=== PATIENT | male | born 1955 | race Caucasian/White ===

== ENCOUNTER 2018-03-19 22:15 | Emergency (ER) | payer OTHER ==
[~2018-03-19] VITALS: Ht 182.9 cm; Wt 72.6 kg
[~2018-03-19 22:15] MED LIST: ATRIPLA TABLET1 EACH; ATRIPLA TABLET1 EACH PO; CRESTOR; CRESTOR40 MG PO; GLUCOPHAGE850 MG PO; K-DUR 20 MEQ T20 MEQ PO; LISINOPRIL; METHADONE HCL 110 MG PO; NIACIN; NIACIN 500 MG500 M1 PO; OMEPRAZOLE 20 M20 MG PO; POTASSIUM; PRINIVIL10 MG PO; VITAMIN D-32000 UNI1 PO; XANAX 0.25 MG0.25 MG PO; XANAX 0.5 MG0.5 M1 PO
[2018-03-19] MEDS ORDERED: FLOMAX0.4 MG (22:35)
[2018-03-19] MEDS ORDERED: DESCOVY 200-251 EACH (22:36)
[2018-03-19] MEDS ORDERED: [UNRECOGNIZED DRUG - OTHER] (22:36)
[2018-03-19] MEDS ORDERED: LIPITOR40 MG (22:37)
[2018-03-19] MEDS ORDERED: METFORMIN HCL1000 M1 (22:38)
[2018-03-19] MEDS ORDERED: VITAMIN D5000 UNIT (22:39)
[2018-03-19] MEDS ORDERED: COMBIVENT (22:40)
[2018-03-19] MEDS ORDERED: ACTICIN 5% CREA60 G1 TOP (23:39)
[2018-03-19] MEDS ORDERED: FLEXERIL PO (23:39)
[2018-03-19] MEDS ORDERED: HYDROXYZINE HCL25 M1 PO (23:40)
[2018-03-19 23:59] VITALS: BP 148/71
== END 2018-03-20 | disposition home or self-care (01) ==
LOC: M.ERS 22:15
DX: S16.1XXA Strain of muscle, fascia and tendon at neck level, initial encounter (principal); S29.012A Strain of muscle and tendon of back wall of thorax, initial encounter; B20 Human immunodeficiency virus [HIV] disease; K74.60 Unspecified cirrhosis of liver; E11.9 Type 2 diabetes mellitus without complications; I10 Essential (primary) hypertension; E78.00 Pure hypercholesterolemia, unspecified; J44.9 Chronic obstructive pulmonary disease, unspecified; Z86.19 Personal history of other infectious and parasitic diseases; Z98.890 Other specified postprocedural states; V89.2XXA Person injured in unspecified motor-vehicle accident, traffic, initial encounter; Y93.89 Activity, other specified; Y92.89 Other specified places as the place of occurrence of the external cause; Y99.8 Other external cause status

== ENCOUNTER 2018-09-22 22:07 | Emergency (ER) | payer OTHER ==
[~2018-09-22] VITALS: Ht 182.9 cm; Wt 72.6 kg
[~2018-09-22 22:07] MED LIST changes: +ACTICIN 5% CREA60 G1 TOP; +COMBIVENT; +DESCOVY 200-251 EACH; +FLEXERIL PO; +FLOMAX0.4 MG; +HYDROXYZINE HCL25 M1 PO; +LIPITOR40 MG; +METFORMIN HCL1000 M1; +VITAMIN D5000 UNIT; +[UNRECOGNIZED DRUG - OTHER]
[2018-09-22] MEDS ORDERED: MOBIC7.5 MG PO (23:05)
[2018-09-22 23:17] VITALS: BP 110/65
== END 2018-09-22 23:18 | disposition home or self-care (01) ==
LOC: M.ERS 22:07
DX: S20.211A Contusion of right front wall of thorax, initial encounter (principal); F17.200 Nicotine dependence, unspecified, uncomplicated; K74.60 Unspecified cirrhosis of liver; E11.9 Type 2 diabetes mellitus without complications; I10 Essential (primary) hypertension; E78.00 Pure hypercholesterolemia, unspecified; J44.9 Chronic obstructive pulmonary disease, unspecified; Z90.89 Acquired absence of other organs; Z88.5 Allergy status to narcotic agent; W01.0XXA Fall on same level from slipping, tripping and stumbling without subsequent striking against object, initial encounter; Y92.89 Other specified places as the place of occurrence of the external cause; Y93.89 Activity, other specified; Y99.8 Other external cause status

== ENCOUNTER 2021-03-12 14:58 | Inpatient (IN) | payer OTHER ==
[~2021-03-12] VITALS: Ht 182.9 cm; Wt 76.4 kg
[~2021-03-12 14:58] MED LIST changes: +MOBIC7.5 MG PO
[2021-03-12 15:13] VITALS: BP 135/77
[2021-03-12 16:01] LABS: ABSOLUTE BASOPHILS 0.1 thou/uL (0.0-0.2); ABSOLUTE EOSINOPHILS 0.2 thou/uL (0.0-0.7); ABSOLUTE LYMPHOCYTES 0.9 thou/uL (0.8-5.3); ABSOLUTE MONOCYTES 1.1 thou/uL (0.0-1.2); ABSOLUTE NEUTROPHILS 8.3 thou/uL (1.6-8.1); BASOPHILS 0.9 %; EOSINOPHILS 1.7 %; HEMATOCRIT 39.1 % (42.0-52.0); HEMOGLOBIN 12.9 gm/dL (14.0-18.0); LYMPHOCYTES 8.2 %; MCH 30.4 pg (26.0-34.0); MCV 92.1 fL (80.0-100.0); MONOCYTES 10.1 %; MPV 8.9 fl. (7.2-11.1); NUCLEATED RBCS 0 /100WBC; PLATELET COUNT* 195 thou/uL (150-400); POLYS 79.1 %; RBC 4.25 mil/uL (4.50-6.00); RDW-CV 14.6 % (10.5-14.5); WBC 10.5 thou/uL (4.0-11.0)
[2021-03-12 16:07] LABS: CALCIUM 9.7 mg/dL (8.5-10.1); CREATININE 1.5 mg/dL (0.6-1.3); POTASSIUM 4.5 mmol/L (3.5-5.1)
[2021-03-12 16:09] LABS: APTT 28.5 Seconds (25.0-31.3); INR 1.1
[2021-03-12 16:12] LABS: ALBUMIN 3.5 g/dL (3.4-5.0); TOTAL BILIRUBIN 0.6 mg/dL (<0.1-1.0); TOTAL PROTEIN 8.1 g/dL (6.4-8.2)
[2021-03-12 17:39] LABS: INFLUENZA A ANTIGEN Negative (Negative); INFLUENZA B ANTIGEN Negative (Negative)
[2021-03-12 23:36] VITALS: BP 116/57
[2021-03-13 03:12] VITALS: BP 115/60
[2021-03-13 05:22] VITALS: BP 109/65
[2021-03-13 08:00] VITALS: BP 102/54
--- NOTE | 2021-03-13 09:52 | EKG ---
[place] [address] ELECTROCARDIOGRAM REPORT Name: MILTON JAMES Room: [address] ADM IN M.R.#: [id number] Admission: 03/12/21 Attend Phys: Carlitos Díaz Discharge: Date of : 55 Date of Service: 03/12/21 1515 Report #: [id number] THIS REPORT FOR: //name// [facility] ED Test Date: 2021-03-12 Test Time: 15:15:14 Pat Name: MILTON JAMES Department: Room: [facility] Gender: M Programming Internship: DSL : 1955 Requested By: Chandler Edmonds Order Number: [id number] MD: Gagan Lopez Measurements Intervals [place] Rate: 85 P: 78 TN: 195 QRS: 12 QRSD: 132 T: 29 QT: 402 QTc: 478 Interpretive Statements Sinus rhythm Right bundle branch bloc Baseline wander in lead(s) I,III,aVL Compared to ECG 05/24/2013 15:17:45 Right bundle-branch block now present Sinus arrhythmia no longer present Electronically Signed On 03-13-2021 9:52:38 STEWARD[employer] by Gagan Lopez [email or web address] <ELECTRONICALLY SIGNED> By: Gagan Lopez MD, FACC 03/13/21 0952 1515 1515 Gagan Lopez MD, FAC /EPI
[2021-03-13 12:00] VITALS: BP 91/51
[2021-03-13] MEDS ORDERED: METHADONE10 MG/1 M2 PO (15:07)
[2021-03-13 20:26] VITALS: BP 124/60
--- NOTE | 2021-03-14 09:43 | CON ---
[address] [address] CONSULTATION Name: MILTON JAMES Room: [address] IN M.R.#: [id number] Admission: 03/12/21 Attend Phys: Yo Ragland Discharge: Date of : 55 Report #: [id number] THIS REPORT FOR: cc: [facility] - Clinic physician unknown [facility] - Clinic physician unknown Ramesh Haney MD ~ DATE OF CONSULTATION: 03/13/2021 HISTORY OF PRESENT ILLNESS: This is a 65-year-old male patient who was evaluated by me for confusion. He said he had an episode of confusion yesterday, which fully resolved. He feels back to his baseline. He does not have a history of this kind of confusion in the past. He did have some acute bronchitis, but he says he usually does not get confused with infection and his son does that. REVIEW OF SYSTEMS: Extensive. He had some cough, some sore throat and a runny nose. No sick contact. He is vaccinated. He has a history of HIV, hepatitis C, diabetes, hypertension, COPD, triple bypass. Rest of the 14-point review of system was noncontributory. He had some hernia repairs. He had a tonsillectomy and liver cirrhosis. PAST MEDICAL HISTORY: Negative for any stroke. FAMILY HISTORY: Negative for early age stroke. SOCIAL HISTORY: He smokes, but he says he does not drink any alcohol. PHYSICAL EXAMINATION: The patient examination indicates he is alert. He is responsive. His speech looks intact. He can tell me it is February, but he said it is , he was able to tell me the year, what hospital he is in, after some effort he was able to tell me who the president is. He was able to tell the one before easily. Cranial nerve examinations appear unremarkable. Neuromuscular examination looks symmetrical. His reflexes are somewhat diminished, but his position sense is intact. His plantar is mute. He does not appear to have any cerebellar sign. He does not have any edema, cyanosis or jaundice. No thyroid mass. There is no meningeal sign. Cardiac examination is unremarkable. No respiratory difficulty. Blood pressure is 91/51. His blood pressure does go low, it has gone lower even before for his size. LABORATORY DATA: His white count is 10.5. His GFR was somewhat low at 47. His B12 is normal. His CT scan was reviewed, which was mostly unremarkable. IMPRESSION: An episode of altered mental status. He did have some mild infection, but having altered mental status with mild infection is somewhat unusual. Therefore, I recommended an MRI of the brain [place] [address] CONSULTATION Name: MILTON JAMES Room: [address] IN M.R.#: [id number] Admission: 03/12/21 Attend Phys: Yo Ragland Discharge: Date of : 55 Report #: [id number] pathology there, especially this patient can get multiple pathologies in the brain and especially because the patient's symptoms improve pretty fast. If he does have some pathology, he will need some further neurological workup. He does not want to do the MRI. He wants to think about it. He says he will let us know tomorrow. I think it will be desirable to do an MRI on him and I recommended at that time and especially because he has HIV patient, he is a smoker, he does have some atherosclerotic disease and we can talk to him again tomorrow and if he allows an MRI of the brain can be done. Thank you very much for this referral. <ELECTRONICALLY SIGNED> By: Ramesh Haney MD 03/14/21 0943 1751 07Ramesh Haney MD /nt
[2021-03-14 10:34] VITALS: BP 108/59
[2021-03-14 15:56] VITALS: BP 114/58
[2021-03-14] MEDS ORDERED: GLIPIZIDE 10 MG10 MG PO (17:18)
[2021-03-14 20:30] VITALS: BP 107/56
[2021-03-15 08:00] VITALS: BP 121/60
[2021-03-15] MEDS ORDERED: DOXYCYCLINE 10100 MG PO (11:42)
[2021-03-15 13:54] VITALS: BP 121/60
[2021-03-15] MEDS ORDERED: IPRAT-ALBUT 0.5-3 ML INH (15:21)
[2021-03-15] MEDS ORDERED: NEBULIZER MISCELL (15:21)
[2021-03-15] MEDS ORDERED: BUDESONIDE0.25 MG/2 INH (15:21)
[2021-03-19] MEDS ORDERED: IPRAT-ALBUT 0.5-3 ML INH (13:57)
[2021-03-19] MEDS ORDERED: PULMICORT0.25 MG/2 INH (13:57)
[2021-03-19] MEDS ORDERED: DOXYCYCLINE 10100 MG PO (13:57)
== END 2021-03-15 17:50 | disposition home or self-care (01) | DRG 193 ==
LOC: M.ERS 14:58 → M.TBA-ER 18:20 → M.2W 18:20 → M.3W 03-13 18:11
PROVIDERS: Emergency Medicine; ADMIT Internal Medicine; ATTEND Internal Medicine
DX: J15.9 Unspecified bacterial pneumonia (principal); G93.41 Metabolic encephalopathy; J96.01 Acute respiratory failure with hypoxia; E11.9 Type 2 diabetes mellitus without complications; K74.60 Unspecified cirrhosis of liver; J43.9 Emphysema, unspecified; I10 Essential (primary) hypertension; E78.00 Pure hypercholesterolemia, unspecified; F17.210 Nicotine dependence, cigarettes, uncomplicated; D64.9 Anemia, unspecified; B19.20 Unspecified viral hepatitis C without hepatic coma; E78.5 Hyperlipidemia, unspecified; J06.9 Acute upper respiratory infection, unspecified; Z20.822 Contact with and (suspected) exposure to COVID-19; Z88.6 Allergy status to analgesic agent; Z79.899 Other long term (current) drug therapy